=== PATIENT | female | born 1965 | race Caucasian/White ===

== ENCOUNTER → 2017-02-02 | Outpatient (CLI) | payer BC | END | disposition home or self-care (01) | LOC: RADCTMAIN 06:59 | PROVIDERS: ATTEND Nurse Practitioner Family | DX: Z53.9 Procedure and treatment not carried out, unspecified reason (principal) ==

== ENCOUNTER → 2017-02-09 | Outpatient (CLI) | payer BC ==
--- NOTE | 2017-02-09 08:42 | CT ---
EXAMINATION TYPE: CT abdomen w con DATE OF EXAM: 02/09/2017 HISTORY: liver lesion CT DLP: 1923mGycm Automated Exposure Control for Dose Reduction was Utilized. CONTRAST: CT scan of the abdomen is performed without oral and with IV Contrast, patient injected with 100 mL o f Omnipaque 300. COMPARISON: CT abdomen February 27, 2016 MRI liver March 03, 2016. FINDINGS: LUNG BASES: No significant abnormality is appreciated. LIVER/GB: There is persistent well-defined lobulated heterogeneous hypodense lesion right hepatic dom e posterior segment medially measuring 3.8 x 3.8 cm on axial series 7 image 14. On dynamic postcontra st images there is some heterogeneous peripheral filling. Imaging characteristics are consistent with hemangioma. It is slightly atypical as does not completely fill on delayed phased images No new intr ahepatic masses or ductal dilatation is seen. PANCREAS: No significant abnormality is seen. SPLEEN: No significant abnormality is seen. ADRENALS: No significant abnormality is seen. KIDNEYS: No significant abnormality is seen. BOWEL: No significant abnormality is seen. LYMPH NODES: No greater than 1cm abdominal lymph nodes are appreciated. OSSEOUS STRUCTURES: There is S-shaped scoliosis. There is multilevel spurring in the spine. There is disc space narrowing L1-L2 level with sclerosis most prominent along left aspect OTHER: No significant additional abnormality is seen. IMPRESSION: Stable 3.8 cm liver lesion felt to reflect hemangioma. No new lesions are evident.
== END ==
LOC: RADCTMAIN 07:12
PROVIDERS: ATTEND Family Medicine
DX: K76.9 Liver disease, unspecified (principal)
CPT/HCPCS: 74160; Q9967

== ENCOUNTER 2017-12-10 15:27 | Inpatient (IN) | payer BC, MEDICARE, OTHER ==
[2017-12-10] MEDS ORDERED: SODIUM CHLORIDE 0.9% 1,000 ML IV STA (17:06)
[2017-12-10] MEDS ORDERED: KETOROLAC 30 MG/ML 1 ML VIAL IVP STA (17:06)
[2017-12-10] MEDS ORDERED: MORPHINE SULFATE 4 MG/ML SYRINGE IV STA (17:06)
[2017-12-10] MEDS ORDERED: ONDANSETRON 4 MG/2 ML VIAL IVP STA ×2 (17:06→20:02)
[2017-12-10] MEDS ORDERED: ACETAMINOPHEN IV (For NPO) 1,000 MG in EMPTY BAG 1 BAG IVPB STA (17:07)
[2017-12-10] MEDS ORDERED: cefTRIAXone IN SWFI 2,000 MG/20 ML SYRINGE IVP STA (17:07)
--- NOTE | 2017-12-10 17:13 | ED ---
General Adult HPI - General Chief complaint: Back Pain/Injury Stated complaint: blood in urine/back pain Time Seen by Provider: 12/10/17 16:26 Source: patient, RN notes reviewed, old records reviewed Mode of arrival: wheelchair Limitations: no limitations - History of Present Illness Initial comments: This is a 52-year-old female to the ER for evaluation. She presents today for evaluation regarding back pain left flank pain severe left flank pain with fever. Patient was diagnosed urinary tract infection 3 days ago and gets progressively worse. Nausea no vomiting positive fever severe pain. Patient also admits to blood in her urine - Related Data Home Medications Medication Instructions Recorded Confirmed Naproxen [Naprosyn] 500 mg PO Q12HR 10/11/14 12/10/17 Gabapentin [Neurontin] 200 mg PO DAILY 03/11/16 12/10/17 Gabapentin [Neurontin] 300 mg PO HS 03/11/16 12/10/17 Lisinopril-Hctz 20-25 mg 1 tab PO HS 03/11/16 12/10/17 [Zestoretic 20-25] Pravastatin Sodium [Pravachol] 10 mg PO HS 03/11/16 12/10/17 Ranitidine HCl 150 mg PO BID 03/11/16 12/10/17 Ascorbic Acid [Vitamin C] 500 mg PO DAILY 12/10/17 12/10/17 Cholecalciferol [Vitamin D3] 1,000 unit PO DAILY 12/10/17 12/10/17 Cyanocobalamin [Vitamin B-12] 500 mcg PO DAILY 12/10/17 12/10/17 Vitamin C/Biotin [Hair, Skin and 1 tab PO DAILY 12/10/17 12/10/17 Nails] Allergies Allergy/AdvReac Type Severity Reaction Status Date / Time No Known Allergies Allergy Verified 12/10/17 18:07 Review of Systems ROS Statement: Those systems with pertinent positive or pertinent negative responses have been documented in the HPI. ROS Other: All systems not noted in ROS Statement are negative. Past Medical History Past Medical History: Hyperlipidemia, Hypertension Additional Past Medical History / Comment(s): ARTHRITIS, CARPAL TUNNEL History of Any Multi-Drug Resistant Organisms: Unobtainable Past Surgical History: Bladder Surgery, Hysterectomy, Tonsillectomy Past Anesthesia/Blood Transfusion Reactions: No Reported Reaction Past Psychological History: No Psychological Hx Reported Smoking Status: Never smoker Past Alcohol Use History: Occasional Past Drug Use History: None Reported General Exam Limitations: no limitations Course Vital Signs 12/10/17 12/10/17 15:52 19:12 Temperature 98.1 F 99.0 F Pulse Rate 100 87 Respiratory 20 16 Rate Blood Pressure 114/76 141/66 O2 Sat by Pulse 99 97 Oximetry - Reevaluation(s) Reevaluation #1: 12/10/17 20:28 Patient still is fever positive Medical Decision Making - Medical Decision Making 52 female the ER with positive UTI positive kidney stone. Patient will be admitted for urology evaluation for stone removal - Lab Data Result diagrams: 12/10/17 17:30 12/10/17 19:19 Lab Results 12/10/17 12/10/17 12/10/17 Range/Units 17:18 17:18 17:30 WBC 17.4 H (3.8-10.6) k/uL RBC 5.14 (3.80-5.40) m/uL Hgb 14.9 (11.4-16.0) gm/dL Hct 44.9 (34.0-46.0) % MCV 87.3 (80.0-100.0) fL MCH 29.0 (25.0-35.0) pg MCHC 33.2 (31.0-37.0) g/dL RDW 12.8 (11.5-15.5) % Plt Count 251 (150-450) k/uL Neutrophils % 89 % Lymphocytes % 5 % Monocytes % 4 % Eosinophils % 1 % Basophils % 0 % Neutrophils # 15.5 H (1.3-7.7) k/uL Lymphocytes # 0.8 L (1.0-4.8) k/uL Monocytes # 0.7 (0-1.0) k/uL Eosinophils # 0.2 (0-0.7) k/uL Basophils # 0.0 (0-0.2) k/uL Sodium (137-145) mmol/L Potassium (3.5-5.1) mmol/L Chloride (98-107) mmol/L Carbon Dioxide (22-30) mmol/L Anion Gap mmol/L BUN (7-17) mg/dL Creatinine (0.52-1.04) mg/dL Est GFR (CKD-EPI)AfAm (>60 ml/min/1.73 sqM) Est GFR (CKD-EPI)NonAf (>60 ml/min/1.73 sqM) Glucose (74-99) mg/dL Calcium (8.4-10.2) mg/dL Total Bilirubin (0.2-1.3) mg/dL AST (14-36) U/L ALT (9-52) U/L Alkaline Phosphatase (38-126) U/L Total Protein (6.3-8.2) g/dL Albumin (3.5-5.0) g/dL Amylase (30-110) U/L Lipase (23-300) U/L Urine Color Yellow Urine Appearance Cloudy H (Clear) Urine pH 6.0 (5.0-8.0) Ur Specific [place] 1.013 (1.001-1.035) Urine Protein 2+ H (Negative) Urine Glucose (UA) Negative (Negative) Urine Ketones 2+ H (Negative) Urine Blood Trace H (Negative) Urine Nitrite Negative (Negative) Urine Bilirubin Negative (Negative) Urine Urobilinogen <2.0 (<2.0) mg/dL Ur Leukocyte Esterase Large H (Negative) Urine RBC 11 H (0-5) /hpf Urine WBC 101 H (0-5) /hpf Ur Squamous Epith Cells 1 (0-4) /hpf Hyaline Casts 1 (0-2) /lpf Urine Mucus Rare H (None) /hpf Urine HCG, Qual Not Detected (Not Detectd) 12/10/17 Range/Units 19:19 WBC (3.8-10.6) k/uL RBC (3.80-5.40) m/uL Hgb (11.4-16.0) gm/dL Hct (34.0-46.0) % MCV (80.0-100.0) fL MCH (25.0-35.0) pg MCHC (31.0-37.0) g/dL RDW (11.5-15.5) % Plt Count (150-450) k/uL Neutrophils % % Lymphocytes % % Monocytes % % Eosinophils % % Basophils % % Neutrophils # (1.3-7.7) k/uL Lymphocytes # (1.0-4.8) k/uL Monocytes # (0-1.0) k/uL Eosinophils # (0-0.7) k/uL Basophils # (0-0.2) k/uL Sodium 136 L (137-145) mmol/L Potassium 4.0 (3.5-5.1) mmol/L Chloride 100 (98-107) mmol/L Carbon Dioxide 24 (22-30) mmol/L Anion Gap 12 mmol/L BUN 21 H (7-17) mg/dL Creatinine 1.00 (0.52-1.04) mg/dL Est GFR (CKD-EPI)AfAm 74 (>60 ml/min/1.73 sqM) Est GFR (CKD-EPI)NonAf 64 (>60 ml/min/1.73 sqM) Glucose 82 (74-99) mg/dL Calcium 9.1 (8.4-10.2) mg/dL Total Bilirubin 0.4 (0.2-1.3) mg/dL AST 14 (14-36) U/L ALT 26 (9-52) U/L Alkaline Phosphatase 95 (38-126) U/L Total Protein 5.8 L (6.3-8.2) g/dL Albumin 3.5 (3.5-5.0) g/dL Amylase 53 (30-110) U/L Lipase 249 (23-300) U/L Urine Color Urine Appearance (Clear) Urine pH (5.0-8.0) Ur Specific [place] (1.001-1.035) Urine Protein (Negative) Urine Glucose (UA) (Negative) Urine Ketones (Negative) Urine Blood (Negative) Urine Nitrite (Negative) Urine Bilirubin (Negative) Urine Urobilinogen (<2.0) mg/dL Ur Leukocyte Esterase (Negative) Urine RBC (0-5) /hpf Urine WBC (0-5) /hpf Ur Squamous Epith Cells (0-4) /hpf Hyaline Casts (0-2) /lpf Urine Mucus (None) /hpf Urine HCG, Qual (Not Detectd) Disposition Clinical Impression: Left ureteral stone, UTI (urinary tract infection) Disposition: ADMITTED IP TO THIS HOSP Condition: Fair Is patient prescribed a controlled substance at d/c from ED?: No Referrals: Simi Cisneros MD [Primary Care Provider] - 1-2 days
[2017-12-10 17:38] LABS: Basophils % (A) 0 %; Eosinophils # (A) 0.2 k/uL (0-0.7); Eosinophils % (A) 1 %; HCT 44.9 % (34.0-46.0); HGB 14.9 gm/dL (11.4-16.0); Lymphocytes # (A) 0.8 k/uL (1.0-4.8); Lymphocytes % (A) 5 %; MCHC 33.2 g/dL (31.0-37.0); MCV 87.3 fL (80.0-100.0); Mean Platelet Volume 6.8; Monocytes # (A) 0.7 k/uL (0-1.0); Monocytes % (A) 4 %; Neutrophils # (A) 15.5 k/uL (1.3-7.7); Neutrophils % (A) 89 %; Platelet Count 251 k/uL (150-450); RBC 5.14 m/uL (3.80-5.40); RDW 12.8 % (11.5-15.5); WBC 17.4 k/uL (3.8-10.6)
[2017-12-10 18:05] LABS: Appearance,Urine Cloudy (Clear); Bilirubin,Urine Negative (Negative); Blood,Urine Trace (Negative); Color,Urine Yellow; Glucose,Urine (UA) Negative (Negative); Hyaline Casts,Urine 1 /lpf (0-2); Ketones,Urine 2+ (Negative); Leukocyte Esterase,Urine Large (Negative); Mucus,Urine Rare /hpf; Nitrite,Urine Negative (Negative); Protein,Urine 2+ (Negative); RBC,Urine 11 /hpf (0-5); Specific Gravity,Urine 1.013 (1.001-1.035); Squamous Epithelial Cell,Urine 1 /hpf (0-4); Urobilinogen,Urine <2.0 mg/dL (<2.0); WBC,Urine 101 /hpf (0-5)
--- NOTE | 2017-12-10 19:05 | CT ---
EXAMINATION TYPE: CT abdomen pelvis wo con DATE OF EXAM: 12/10/2017 COMPARISON: 02/09/2017 HISTORY: Back pain, hematuria and nausea. TECHNIQUE: Helical acquisition of images was performed from the lung bases through the pelvis. CT DLP: 1273.3 mGycm. Automated exposure control for dose reduction was used. FINDINGS: LUNG BASES: No significant abnormality is appreciated. LIVER/GB: No significant abnormality is appreciated. PANCREAS: No significant abnormality is seen. SPLEEN: No significant abnormality is seen. ADRENALS: No significant abnormality is seen. KIDNEYS, URETERS, BLADDER: There is prominent patient motion artifact on all images, but on axial jose ge 76 [id number] there is evidence of a 2 mm calcification within the left mid ureter. There is mild-mode rate hydronephrosis and mild enlargement of the left kidney, with edematous reticulation throughout t he left perirenal space and thickening of the anterior and posterior renal fascia. These findings are consistent with a clinical diagnosis of left obstructive uropathy. There are no other calcifications in the ureters or kidneys or urinary bladder. FREE AIR: No free air is visualized RETROPERITONEAL ADENOPATHY: None visualized REPRODUCTIVE ORGANS: No significant abnormality is seen PELVIC ADENOPATHY: None visualized. OSSEOUS STRUCTURES: No significant abnormality is seen. BOWEL: No significant abnormality is seen. IMPRESSION: POSITIVE FOR OBSTRUCTIVE LEFT UROPATHY, [id number] IN DEGREE, WITH A CANDIDATE FOR 2 MM CALCIFICATION IN THE LEFT MID URETER AT THE L4 LEVEL.
[2017-12-10 19:53] LABS: Albumin 3.5 g/dL (3.5-5.0); Calcium 9.1 mg/dL (8.4-10.2); Total Bilirubin 0.4 mg/dL (0.2-1.3); Total Protein 5.8 g/dL (6.3-8.2)
[2017-12-10] MEDS ORDERED: SODIUM CHLORIDE 0.9% 1,000 ML IV ONE (20:26)
[2017-12-10] MEDS: MORPHINE SULFATE 4 MG/ML SYRINGE IVP PRN (21:15)
[2017-12-10] MEDS ORDERED: ACETAMINOPHEN TAB 325 MG TAB PO PRN (22:16)
[2017-12-10] MEDS ORDERED: LACTULOSE 20 GM/30 ML CUP PO PRN (22:16)
[2017-12-10] MEDS ORDERED: MELATONIN 3 MG TABLET PO PRN (22:16)
[2017-12-10] MEDS ORDERED: ALPRAZolam 0.25 MG TAB PO PRN (22:16)
[2017-12-10] MEDS ORDERED: CALCIUM CARBONATE 500 MG CHEWABLE PO PRN (22:16)
[2017-12-10] MEDS: KETOROLAC 30 MG/ML 1 ML VIAL IVP PRN (23:49)
[2017-12-10] MEDS: TAMSULOSIN 0.4 MG CAP.ER.24H PO SCH (23:50)
[2017-12-10] MEDS: LISINOPRIL-HCTZ 20-25 MG 1 EACH TAB PO SCH (23:50)
[2017-12-10] MEDS: GABAPENTIN 300 MG CAP PO SCH (23:50)
[2017-12-10] MEDS: FAMOTIDINE 20 MG TAB PO SCH (23:50)
[2017-12-10] MEDS: PRAVASTATIN SODIUM 20 MG TAB PO SCH (23:51)
[2017-12-10] MEDS: ENOXAPARIN 40 MG/0.4 ML SYRINGE SQ SCH (23:52)
[2017-12-10] MEDS: NAPROXEN 250 MG TAB PO SCH (23:53)
[2017-12-10] MEDS: LACTATED RINGERS 1,000 ML IV SCH (23:55)
[2017-12-11] MEDS: MORPHINE SULFATE 4 MG/ML SYRINGE IVP PRN ×4 (01:16→18:46)
[2017-12-11] MEDS: ONDANSETRON 4 MG/2 ML VIAL IVP PRN (01:16)
[2017-12-11] MEDS ORDERED: cefTRIAXone IN SWFI 1,000 MG/10 ML SYRINGE IVP SCH (06:00)
[2017-12-11] MEDS: LACTATED RINGERS 1,000 ML IV SCH ×3 (07:05→22:09)
[2017-12-11 07:13] LABS: Basophils % (A) 0 %; Eosinophils # (A) 0.2 k/uL (0-0.7); Eosinophils % (A) 1 %; HGB 15.2 gm/dL (11.4-16.0); Lymphocytes % (A) 7 %; MCH 29.4 pg (25.0-35.0); MCHC 33.8 g/dL (31.0-37.0); MCV 87.2 fL (80.0-100.0); Mean Platelet Volume 7.4; Monocytes # (A) 0.6 k/uL (0-1.0); Monocytes % (A) 4 %; Neutrophils # (A) 13.3 k/uL (1.3-7.7); Neutrophils % (A) 87 %; Platelet Count 260 k/uL (150-450); RBC 5.17 m/uL (3.80-5.40); RDW 12.9 % (11.5-15.5); WBC 15.2 k/uL (3.8-10.6)
[2017-12-11] MEDS: GABAPENTIN 100 MG CAP PO SCH (07:55)
[2017-12-11] MEDS: TAMSULOSIN 0.4 MG CAP.ER.24H PO SCH (07:55)
[2017-12-11] MEDS: FAMOTIDINE 20 MG TAB PO SCH ×2 (07:55→20:49)
[2017-12-11] MEDS: NAPROXEN 250 MG TAB PO SCH ×2 (07:55→21:50)
[2017-12-11 08:52] LABS: Calcium 9.4 mg/dL (8.4-10.2); Potassium 3.9 mmol/L (3.5-5.1)
[2017-12-11] MEDS: KETOROLAC 30 MG/ML 1 ML VIAL IVP PRN ×3 (09:51→22:06)
--- NOTE | 2017-12-11 16:52 | P.GSCN ---
History of Present Illness Consult date: 12/11/17 Reason for Consult: Pyelonephritis and possible ureteral calculus History of present illness: The patient is a 52-year-old female who says she noted pink-colored urine on . She was also experiencing nausea and pain in her mid back. She works for and says she had a urinalysis performed which suggested a urinary tract infection. She was started on Cipro but unfortunately a urine culture was not obtained at that time. She was anorexic for the next 2 days and continued to have intermittent pain in the mid back. She also said she continue to have some pink-colored urine. She denied a high fever but did say at one time her temperature was as high as 100.9. She noted no odor to her urine has noted no increased urinary frequency or urgency. Due to the persistence of her pain she was advised to come to the emergency room for evaluation. In the emergency room she was afebrile. Her white blood count was 17,400. Urinalysis showed 11 red cells 101 white cells but was negative for nitrite. The patient was suspected to have pyelonephritis although she said her pain was never worse on one side or the other. Computed tomography scan of the abdomen and pelvis without IV contrast was interpreted as showing mild left hydronephrosis and a possible 2 mm calculus in the mid left ureter on sagittal views of the ureter. The patient has no personal or family history of urolithiasis. She has no other history of hematuria. She does have chronic back pain. Review of Systems - Constitutional Reports chills, Denies fever - Cardiovascular Denies shortness of breath - Respiratory Denies pain on inspiration - Gastrointestinal Denies change in bowel habits, Denies vomiting - Genitourinary Genitourinary: Reports as per HPI Past Medical History Past Medical History: Asthma, GERD/Reflux, Hyperlipidemia, Hypertension Additional Past Medical History / Comment(s): ARTHRITIS in hands, CARPAL TUNNEL , chronic back pain, benign lesion on liver History of Any Multi-Drug Resistant Organisms: Unobtainable Past Surgical History: Bladder Surgery, Hysterectomy, Tonsillectomy Additional Past Surgical History / Comment(s): repair of cystocele/rectocel Past Anesthesia/Blood Transfusion Reactions: Motion Sickness Additional Past Anesthesia/Blood Transfusion Reaction / Comm: motion sickness if reading in a car, clausterphobia. pt stated that her mother was rh neg and pt recieved blood transfusion as Smoking Status: Never smoker - Past Family History Mother Family Medical History: Dementia Additional Family Medical History / Comment(s): colitis Father Family Medical History: Hypertension Additional Family Medical History / Comment(s): alcoholic Medications and Allergies Home Medications Medication Instructions Recorded Confirmed Type Naproxen [Naprosyn] 500 mg PO Q12HR 10/11/14 12/10/17 History Gabapentin [Neurontin] 200 mg PO DAILY 03/11/16 12/10/17 History Gabapentin [Neurontin] 300 mg PO HS 03/11/16 12/10/17 History Lisinopril-Hctz 20-25 mg 1 tab PO HS 03/11/16 12/10/17 History [Zestoretic 20-25] Pravastatin Sodium [Pravachol] 10 mg PO HS 03/11/16 12/10/17 History Ranitidine HCl 150 mg PO BID 03/11/16 12/10/17 History Ascorbic Acid [Vitamin C] 500 mg PO DAILY 12/10/17 12/10/17 History Cholecalciferol [Vitamin D3] 1,000 unit PO DAILY 12/10/17 12/10/17 History Cyanocobalamin [Vitamin B-12] 500 mcg PO DAILY 12/10/17 12/10/17 History Vitamin C/Biotin [Hair, Skin and 1 tab PO DAILY 12/10/17 12/10/17 History Nails] Allergies Allergy/AdvReac Type Severity Reaction Status Date / Time No Known Allergies Allergy Verified 12/10/17 18:07 Surgical - Exam Vital Signs Temp Pulse Resp BP Pulse Ox 98.1 F 100 20 114/76 99 12/10/17 15:52 12/10/17 15:52 12/10/17 15:52 12/10/17 15:52 12/10/17 15:52 - General well developed, well nourished, no distress, obese - Neck no masses, no lymphadectomy - Respiratory normal respiratory effort - Abdomen Abdomen: soft, non tender, no organomegaly, no guarding Results - Labs 12/11/17 07:00 12/11/17 07:00 Abnormal Lab Results - Last 24 Hours (Table) 12/10/17 12/10/17 12/10/17 Range/Units 17:18 17:30 19:19 WBC 17.4 H (3.8-10.6) k/uL Neutrophils # 15.5 H (1.3-7.7) k/uL Lymphocytes # 0.8 L (1.0-4.8) k/uL Sodium 136 L (137-145) mmol/L Carbon Dioxide (22-30) mmol/L BUN 21 H (7-17) mg/dL Creatinine (0.52-1.04) mg/dL Total Protein 5.8 L (6.3-8.2) g/dL Urine Appearance Cloudy H (Clear) Urine Protein 2+ H (Negative) Urine Ketones 2+ H (Negative) Urine Blood Trace H (Negative) Ur Leukocyte Esterase Large H (Negative) Urine RBC 11 H (0-5) /hpf Urine WBC 101 H (0-5) /hpf Urine Mucus Rare H (None) /hpf 12/11/17 12/11/17 Range/Units 07:00 07:00 WBC 15.2 H (3.8-10.6) k/uL Neutrophils # 13.3 H (1.3-7.7) k/uL Lymphocytes # (1.0-4.8) k/uL Sodium (137-145) mmol/L Carbon Dioxide 21 L (22-30) mmol/L BUN 29 H (7-17) mg/dL Creatinine 1.19 H (0.52-1.04) mg/dL Total Protein (6.3-8.2) g/dL Urine Appearance (Clear) Urine Protein (Negative) Urine Ketones (Negative) Urine Blood (Negative) Ur Leukocyte Esterase (Negative) Urine RBC (0-5) /hpf Urine WBC (0-5) /hpf Urine Mucus (None) /hpf Microbiology - Last 24 Hours (Table) 12/10/17 17:18 Urine Culture - Preliminary Urine,Clean Catch Diabetes panel 12/10/17 12/11/17 Range/Units 19:19 07:00 Sodium 136 L 138 (137-145) mmol/L Potassium 4.0 3.9 (3.5-5.1) mmol/L Chloride 100 102 (98-107) mmol/L Carbon Dioxide 24 21 L (22-30) mmol/L BUN 21 H 29 H (7-17) mg/dL Creatinine 1.00 1.19 H (0.52-1.04) mg/dL Glucose 82 76 (74-99) mg/dL Calcium 9.1 9.4 (8.4-10.2) mg/dL AST 14 (14-36) U/L ALT 26 (9-52) U/L Alkaline Phosphatase 95 (38-126) U/L Total Protein 5.8 L (6.3-8.2) g/dL Albumin 3.5 (3.5-5.0) g/dL Calcium panel 12/10/17 12/11/17 Range/Units 19: 07:00 Calcium 9.1 9.4 (8.4-10.2) mg/dL Albumin 3.5 (3.5-5.0) g/dL Pituitary panel 12/10/17 12/11/17 Range/Units 19: 07:00 Sodium 136 L 138 (137-145) mmol/L Potassium 4.0 3.9 (3.5-5.1) mmol/L Chloride 100 102 (98-107) mmol/L Carbon Dioxide 24 21 L (22-30) mmol/L BUN 21 H 29 H (7-17) mg/dL Creatinine 1.00 1.19 H (0.52-1.04) mg/dL Glucose 82 76 (74-99) mg/dL Calcium 9.1 9.4 (8.4-10.2) mg/dL Adrenal panel 12/10/17 12/11/17 Range/Units 19:19 07:00 Sodium 136 L 138 (137-145) mmol/L Potassium 4.0 3.9 (3.5-5.1) mmol/L Chloride 100 102 (98-107) mmol/L Carbon Dioxide 24 21 L (22-30) mmol/L BUN 21 H 29 H (7-17) mg/dL Creatinine 1.00 1.19 H (0.52-1.04) mg/dL Glucose 82 76 (74-99) mg/dL Calcium 9.1 9.4 (8.4-10.2) mg/dL Total Bilirubin 0.4 (0.2-1.3) mg/dL AST 14 (14-36) U/L ALT 26 (9-52) U/L Alkaline Phosphatase 95 (38-126) U/L Total Protein 5.8 L (6.3-8.2) g/dL Albumin 3.5 (3.5-5.0) g/dL - Imaging Abdominal x-ray: other (I personally reviewed the patient's computed tomography scan of the abdomen and pelvis which was performed without IV contrast. I am unconvinced that the patient had any significant left hydronephrosis. There is no calculus visible in the left ureter on sagittal or axial views. Unfortunately the coronal views were unobtainable on the PACS.) Assessment and Plan (1) Pyelonephritis Narrative/Plan: The patient's fever and elevated white blood count could be related to pyelonephritis however it is unusual for pyelonephritis to cause pain only in the mid back and not be lateralized to either the right or left side. It is possible that this is the source of the hematuria that the patient experienced earlier. It's impossible to exclude a tiny left ureteral calculus however there does not appear to be any significant hydronephrosis on the computed tomography scan. The patient is more comfortable than when she came in yesterday and should be continued on Rocephin. It's unclear whether the urine culture obtained on admission will be positive as the patient had taken Cipro for 3 days prior to admission. At least at this time I do not feel that placement of a left double- J catheter is necessary. Current Visit: Yes Status: Acute Code(s): N12 - TUBULO-INTERSTITIAL NEPHRITIS, NOT SPCF ACUTE OR CHRONIC SNOMED Code(s): 89414310
[2017-12-11] MEDS ORDERED: ENOXAPARIN 40 MG/0.4 ML SYRINGE SQ SCH (18:00)
--- NOTE | 2017-12-11 19:04 | HP ---
HISTORY AND PHYSICAL DATE OF ADMISSION: 12/10/2017 DATE OF SERVICE: 12/11/2017 PRESENTING COMPLAINT: Left flank pain. HISTORY OF PRESENTING COMPLAINT: This is a very pleasant 52-year-old patient of Dr. Simi Cisneros. Chronic stable medical conditions include asthma, GERD, hypertension, hyperlipidemia, arthritis of the hands and chronic low back pain. Patient for 3 days has been having increasing pain in the abdomen and the flank area. The patient was having nausea and some fever and a pressure-like sensation in the bladder area. The patient did start off with antibiotics, but the pain kept getting worse and she decided to come into the ER. The patient did have a CT scan of the abdomen and pelvis and was found to have obstructive left uropathy, mild to moderate, with a 2 cm calcification in the left mid ureter along with hydronephrosis; hence she was admitted for the same. Patient was started on IV fluids, IV antibiotics, and Urology Dr. Vera was consulted. REVIEW OF SYSTEMS: CONSTITUTIONAL: Tired. HEENT: None. RESPIRATORY: None. CARDIOVASCULAR: None. GASTROINTESTINAL: Heartburn. GENITOURINARY: As above. MUSCULOSKELETAL: Arthritic pain in the lower back and hands. DERMATOLOGICAL: None. HEMATOLOGICAL: None. LYMPHATICS: None. PSYCHIATRY: None. NEUROLOGICAL: None. PAST MEDICAL HISTORY: 1. Asthma. 2. GERD. 3. Hypertension. 4. Hyperlipidemia. 5. Osteoarthritis of the hands. 6. Chronic low back pain. PAST SURGICAL HISTORY: 1. Bladder surgery. 2. Hysterectomy. 3. Tonsillectomy. 4. Repair of cystocele and rectocele. SOCIAL HISTORY: No smoking. Alcohol occasionally. 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 . FAMILY HISTORY: Dementia and colitis. HOME MEDICATIONS: 1. Vitamin hair skin and nails 1 tablet daily. 2. Vitamin D3 1000 units p.o. daily. 3. Vitamin C 500 mg p.o. daily. 4. Zantac 150 mg p.o. b.i.d. 5. Pravachol 10 mg p.o. at bedtime. 6. Naproxen 500 mg q.12. 7. Zestoretic 20/25 one tablet p.o. at bedtime. 8. Neurontin 200 mg in the morning, 300 mg at night. 9. Vitamin B12 500 mcg p.o. daily. ALLERGIES: NONE. PHYSICAL EXAMINATION: VITAL SIGNS ON PRESENTATION: Temperature 98.1, pulse 100, respiration 20, blood pressure 114/76, pulse ox 99% on room air. GENERAL APPEARANCE: Well built, BMI 32.9. Sitting up. Somewhat anxious-appearing. EYES: Pupils equal. Conjunctivae normal. HEENT: External appearance of nose and ears normal. Oral cavity normal. NECK: JVD not raised. Mass not palpable. RESPIRATORY: Effort normal. LUNGS: Fair air entry. CARDIOVASCULAR: First and second sounds normal. No edema. ABDOMEN: Left renal angle tenderness. Liver and spleen not palpable. No guarding or rigidity. LYMPHATIC: No lymph node palpable in neck or axillae. PSYCHIATRY: Alert and oriented x3. Mood and affect normal. NEUROLOGICAL: Pupils equal.. Cranial nerves grossly intact. Power and sensation grossly intact. MUSCULOSKELETAL: Slight evidence of osteoarthritis, especially in the hands. INVESTIGATIONS: White count 17.4, hemoglobin 14.9, potassium 4, BUN 21, creatinine 1.10. UA positive for leukocyte esterase, WBC. CT scan as above. ASSESSMENT: 1. Left ureter stone causing obstruction with secondary hydronephrosis and possibly secondary pyelonephritis with elevated white count, fever at home. That is causing acute complicated UTI. 2. Intermittent asthma, controlled. 3. Gastroesophageal reflux disease. 4. Essential hypertension. 5. Hyperlipidemia. 6. Obesity; body mass index 32.9. PLAN: Continue patient with IV fluids 125 mL/hour. Also Flomax was added. Continue with antibiotics. If there is no improvement, patient will need a ureteroscopy and stone extraction. This was discussed with the patient. Dr. Vera from Urology is already consulted. MMODL / IJN: [id number] /
[2017-12-11] MEDS: GABAPENTIN 300 MG CAP PO SCH (20:57)
[2017-12-11] MEDS: ENOXAPARIN 40 MG/0.4 ML SYRINGE SQ SCH (21:47)
[2017-12-11] MEDS: PRAVASTATIN SODIUM 20 MG TAB PO SCH (21:49)
[2017-12-11] MEDS: LISINOPRIL-HCTZ 20-25 MG 1 EACH TAB PO SCH (21:50)
[2017-12-11] MEDS: MAGNESIUM HYDROXIDE 2,400 MG/10 ML CUP PO PRN (22:25)
[2017-12-12] MEDS: MORPHINE SULFATE 4 MG/ML SYRINGE IVP PRN ×3 (03:19→21:17)
[2017-12-12 07:32] LABS: Calcium 9.4 mg/dL (8.4-10.2); Potassium 3.8 mmol/L (3.5-5.1)
[2017-12-12] MEDS: KETOROLAC 30 MG/ML 1 ML VIAL IVP PRN (08:19)
[2017-12-12] MEDS: cefTRIAXone IN SWFI 1,000 MG/10 ML SYRINGE IVP SCH (08:56)
[2017-12-12] MEDS: CYANOCOBALAMIN 500 MCG TAB PO SCH (08:57)
[2017-12-12] MEDS: ASCORBIC ACID 500 MG TAB PO SCH (08:57)
[2017-12-12] MEDS: TAMSULOSIN 0.4 MG CAP.ER.24H PO SCH (08:57)
[2017-12-12] MEDS: GABAPENTIN 100 MG CAP PO SCH (08:57)
[2017-12-12] MEDS: FAMOTIDINE 20 MG TAB PO SCH (08:57)
--- NOTE | 2017-12-12 09:57 | P.PN ---
Progress Note - Text Progress Note Date: 12/12/17 The patient remains afebrile. Her blood pressure was 112/57. She continues to have midline back pain which overall is less than it was earlier in the week. Her urine is grossly clear and free of blood. BUN/creatinine are 31/1.43 which is increased from yesterday and also increased from that noted at the time of admission. Urine culture is no growth at 18 hours. The cause of the patient's back pain, gross hematuria and low-grade fever remains unexplained. I reviewed a computed tomography scan of the abdomen/ pelvis performed with IV contrast in 01/2017 and at that time there was no evidence of a left renal calculus. I remain unconvinced that the patient has a small partially obstructive left ureteral calculus and this by itself would not explain the gradual rise in her BUN/creatinine. Other causes for the patient's symptoms such as nephritis needs to be considered and I believe that a nephrology consultation should be obtained.
[2017-12-12] MEDS: LACTATED RINGERS 1,000 ML IV SCH ×2 (12:48→20:13)
[2017-12-12] MEDS: ONDANSETRON 4 MG/2 ML VIAL IVP PRN (17:04)
--- NOTE | 2017-12-12 18:59 | PN ---
PROGRESS NOTE DATE OF SERVICE: December 12, 2017. PRESENT COMPLAINT: Left flank pain. INTERVAL HISTORY: Patient presented with acute ureteral obstruction with obstructive pyelonephritis. Today, patient's renal function has gotten worse. Left flank pain is still present. No nausea, vomiting. REVIEW OF SYSTEMS: Done for constitutional, cardiovascular, GI, pulmonary and relevant findings as above. CURRENT MEDICATIONS: Reviewed that include Toradol, naproxen, lisinopril, hydrochlorothiazide. PHYSICAL EXAMINATION: Temperature 98.7, pulse 73, respiratory 18, blood pressure 102/74, pulse ox 96% on room air. General appearance: Sitting up, not in distress. Eyes: Pupils are equal. Conjunctivae normal. HEENT external appearance of nose and ears normal. Oral cavity normal. Neck JVD not raised. Mass not palpable. Respiratory effort normal. Lungs fair entry. Cardiovascular 1st and 2nd sounds normal. No edema. ABDOMEN: Soft, left renal angle tenderness. Liver and spleen not palpable. Psychiatry: Alert and oriented x3. Mood and affect normal. INVESTIGATIONS: Potassium 3.8, BUN 31, creatinine 1.43. ASSESSMENT: 1. Acute kidney injury likely from acute tubular necrosis combination of patient being on NSAID and NHI inhibitor. 2. Left obstructive hydroureter with secondary hydronephrosis and secondary pyelonephritis slow to respond. 3. Intermittent asthma controlled. 4. Gastroesophageal reflux disease. 5. Essential hypertension. 6. Hyperlipidemia. 7. Obesity; BMI 32.9. PLAN: At this point, I have discontinued the patient's naproxen, Toradol, and the diuretic and lisinopril. The patient did receive today's dose. Expect this to start turning around by tomorrow. In the meantime, continue with IV fluids and IV ceftriaxone. If the obstruction does not resolve, it may need a ureteroscopy with extraction. This was discussed with the patient. Follow. MMODL / IJN: [id number] /
[2017-12-12] MEDS: PRAVASTATIN SODIUM 20 MG TAB PO SCH (20:59)
[2017-12-12] MEDS: ENOXAPARIN 40 MG/0.4 ML SYRINGE SQ SCH (21:04)
[2017-12-12] MEDS: GABAPENTIN 300 MG CAP PO SCH (21:05)
[2017-12-12] MEDS: MAGNESIUM HYDROXIDE 2,400 MG/10 ML CUP PO PRN (21:51)
[2017-12-13] MEDS: MORPHINE SULFATE 4 MG/ML SYRINGE IVP PRN ×3 (01:41→18:03)
[2017-12-13] MEDS: LACTATED RINGERS 1,000 ML IV SCH ×2 (04:01→18:50)
[2017-12-13] MEDS: cefTRIAXone IN SWFI 1,000 MG/10 ML SYRINGE IVP SCH (08:49)
[2017-12-13] MEDS: TAMSULOSIN 0.4 MG CAP.ER.24H PO SCH (08:50)
[2017-12-13] MEDS: ASCORBIC ACID 500 MG TAB PO SCH (08:50)
[2017-12-13] MEDS: GABAPENTIN 100 MG CAP PO SCH (08:50)
[2017-12-13] MEDS: FAMOTIDINE 20 MG TAB PO SCH (08:50)
[2017-12-13] MEDS: CYANOCOBALAMIN 500 MCG TAB PO SCH (08:50)
[2017-12-13 09:56] LABS: Calcium 8.9 mg/dL (8.4-10.2); Potassium 4.4 mmol/L (3.5-5.1)
--- NOTE | 2017-12-13 10:08 | P.NPCON ---
History of Present Illness - Reason for Consult Consult date: 12/13/17 acute renal failure - Chief Complaint SAÚL - History of Present Illness This is a 52-year-old female seen in consultation because of acute kidney injury. Her creatinine has gone from 1-1.4 She has a CAT scan that shows a possible left ureteral stone, but it is questionable. She presented with low back pain, left loin pain with some suprapubic discomfort. This is been going on for proximally 2-3 days prior to admission. She did have some temperature at home of 100.6. She is in the nauseated but no vomiting. She has chronic constipation and uses MiraLAX. There has been no change in her bowel habits. No cough chest pain shortness of breath headache dizziness. She denied any dysuria. No past history of kidney stones. Her past history significant for hypertension for a 5-6 years on lisinopril had a protracted that combination. No history of heart attack strokes claudication pain diabetes. Her home medication included lisinopril hydrochlorothiazide as well as Naprosyn and that should been taking for 2-3 years because of carpal tunnel syndrome. She takes 375 mg twice a day. Her creatinine on admission was 1 but went up to 1.4 as of yesterday. She was given IV fluids in the hospital A urinalysis here in the hospital shows 2+ proteinuria and 101 WBCs, 11 RBCs. Past Medical History Past Medical History: Asthma, GERD/Reflux, Hyperlipidemia, Hypertension Additional Past Medical History / Comment(s): ARTHRITIS in hands, CARPAL TUNNEL , chronic back pain, benign lesion on liver History of Any Multi-Drug Resistant Organisms: Unobtainable Past Surgical History: Bladder Surgery, Hysterectomy, Tonsillectomy Additional Past Surgical History / Comment(s): repair of cystocele/rectocel Past Anesthesia/Blood Transfusion Reactions: Motion Sickness Additional Past Anesthesia/Blood Transfusion Reaction / Comment(s): motion sickness if reading in a car, clausterphobia. pt stated that her mother was rh neg and pt recieved blood transfusion as Smoking Status: Never smoker - Past Family History Mother Family Medical History: Dementia Additional Family Medical History / Comment(s): colitis Father Family Medical History: Hypertension Additional Family Medical History / Comment(s): alcoholic Medications and Allergies Home Medications Medication Instructions Recorded Confirmed Type Naproxen [Naprosyn] 500 mg PO Q12HR 10/11/14 12/10/17 History Gabapentin [Neurontin] 200 mg PO DAILY 03/11/16 12/10/17 History Gabapentin [Neurontin] 300 mg PO HS 03/11/16 12/10/17 History Lisinopril-Hctz 20-25 mg 1 tab PO HS 03/11/16 12/10/17 History [Zestoretic 20-25] Pravastatin Sodium [Pravachol] 10 mg PO HS 03/11/16 12/10/17 History Ranitidine HCl 150 mg PO BID 03/11/16 12/10/17 History Ascorbic Acid [Vitamin C] 500 mg PO DAILY 12/10/17 12/10/17 History Cholecalciferol [Vitamin D3] 1,000 unit PO DAILY 12/10/17 12/10/17 History Cyanocobalamin [Vitamin B-12] 500 mcg PO DAILY 12/10/17 12/10/17 History Vitamin C/Biotin [Hair, Skin and 1 tab PO DAILY 12/10/17 12/10/17 History Nails] Allergies Allergy/AdvReac Type Severity Reaction Status Date / Time No Known Allergies Allergy Verified 12/10/17 18:07 Physical Exam Vitals: Vital Signs Temp Pulse Resp BP Pulse Ox 12/13/17 08:06 98.5 F 90 18 126/79 97 12/12/17 21:00 99.1 F 18 122/66 97 12/12/17 15:00 98.5 F 58 L 18 127/75 96 12/12/17 11:09 98.7 F 73 18 112/74 96 Intake and Output 12/12/17 12/13/17 12/13/17 22:59 06:59 14:59 Intake Total 480 940 900 Output Total 650 600 400 Balance -170 340 500 Intake: Intake, IV Titration 940 Amount Lactated Ringers 1,000 ml 940 @ 125 mls/hr IV .Q8H [facility] Rx#:[id number] Oral 480 900 Output: Urine 650 600 400 Other: Voiding Method Toilet Toilet Toilet Examination she is awake alert oriented comfortable pain is much reduced after pain medications. HEENT exam no JVP lymphadenopathy thyromegaly neck is supple no facial asymmetry pupils are equal. Lungs are clear to auscultation percussion good air entry bilaterally Heart sounds are unremarkable no murmur rub gallop Abdomen is soft there is tenderness in the right groin as well as suprapubic area. Extremity exam reveals trace edema Neurologically awake alert oriented. Skin shows no rash. Results - Lab Results Most recent lab results Calcium 9.4 mg/dL (8.4-10.2) 12/12/17 06:53 12/11/17 07:00 12/12/17 06:53 Assessment and Plan Plan: Impression 1. Acute kidney injury creatinine went up from 1 on admission to 1.4 yesterday. Urinalysis here in the hospital showed pyuria with 101 WBCs, 11 RBCs and 2+ protein but repeat urinalysis by me this morning on microscopy shows 4-5 WBCs, no RBCs and occasional squamous cell. The cause of the acute kidney injury is deemed to from a combination of Naprosyn lisinopril hydrochlorothiazide reduced intake and possible obstructive left hydronephrosis because of a urethral stone although urology feels there is no stone on the computed tomography scan. 2. Hypertension for 5 years under control. 3. Mild degree of gap acidosis from acute kidney injury with bicarb of 28 doesn 't of 4 with the gap of 17 with adult of 5. 4. Mild hyponatremia secondary acute kidney injury sodium is 133. 5. Carpal tunnel syndrome on Naprosyn. Recommendation. 1. Discussed with Dr. Vera from urology and we will repeat either an ultrasound or computed tomography scan after discussion with the radiologist. 2. Maintain IV fluids for today normal saline and 125 an hour. 3. Regarding the acidosis is no need to treat as expected to improve. 4. Once she is stabilized resume her lisinopril. 5. If a stone is conformed after discharge In about 6-8 weeks she will need stone workup as it has caused her complications. In the meantime she should drink adequately amounts of water to produce 2-1/2 L of urine Thank you for this consultation will continue to follow
--- NOTE | 2017-12-13 10:18 | P.PN ---
Progress Note - Text Progress Note Date: 12/13/17 The patient is afebrile. She continues to have intermittent pain in the mid low back and left sacroiliac area. She says the pain seems worse when she moves and twists. Her urine is grossly clear and a follow-up urinalysis is improved from that on admission. Her creatinine today has improved and is 1.22. Urine culture is no growth. The cause of the patient's pain remains unclear. If the patient does have a left ureteral calculus that appears to be a tiny is it is not well visualized on computed tomography scan. It is also possible that the patient had a urinary tract infection prior to her admission but unfortunately urine culture was not obtained prior to starting Cipro earlier this week. From my standpoint the patient could be discharged as long as she is comfortable. I would suggest that she continue to strain her urine. She should also have a follow-up BUN and creatinine sometime next week to confirm that they have returned to normal.
[2017-12-13] MEDS: GABAPENTIN 300 MG CAP PO SCH (21:19)
[2017-12-13] MEDS: ENOXAPARIN 40 MG/0.4 ML SYRINGE SQ SCH (21:19)
[2017-12-13] MEDS: PRAVASTATIN SODIUM 20 MG TAB PO SCH (21:19)
--- NOTE | 2017-12-13 23:00 | PN ---
PROGRESS NOTE DATE OF SERVICE: 12/13/17 PRESENTING COMPLAINT: Left flank pain. INTERVAL HISTORY: Patient presented with acute ureteral obstruction with obstructive pyelonephritis, getting better. The patient also had acute renal failure probably drug induced, getting better. The patient's appetite is getting better. Per Nephrology no further intervention at the present time. REVIEW OF SYSTEMS: Done for constitutional, cardiovascular, GI, pulmonary; relevant findings as above. CURRENT MEDICATIONS: Reviewed. EXAMINATION: Afebrile, pulse 86. Respiratory 18, blood pressure 150/68, pulse ox 96% on room air. General appearance: Sitting up, more comfortable. Eyes: Pupils equal. Conjunctivae normal. HEENT: External appearance of nose and ears normal. Oral cavity normal. Neck JVD not raised. Mass not palpable. Respiratory effort normal. Lungs are clear. Cardiovascular 1st and 2nd sounds normal. No edema. Abdomen: Minimal left renal angle tenderness. Liver and spleen not palpable. Psychiatry: Alert and oriented x3. Mood and affect normal. INVESTIGATIONS: Potassium 4.4, BUN 22, creatinine 1.20. ASSESSMENT: 1. Acute kidney injury likely from acute tubular necrosis combination of patient being on NSAIDs and NHI inhibitor started to improve. 2. Left obstructive hydroureter if any with a very small stone secondary to hydronephrosis and secondary pyelonephritis. 3. Intermittent asthma controlled. 4. Gastroesophageal reflux disease. 5. Essential hypertension. 6. Hyperlipidemia. 7. Obesity; BMI 32.9. PLAN: Overall patient doing better. I discussed with Dr. Vera. From his standpoint no further intervention right now. We will continue to hold off nephrotoxic drugs. Continue with IV fluids. Repeat labs in the morning. Care was discussed with the patient. MMODL / IJN: [id number] /
[2017-12-14] MEDS: LACTATED RINGERS 1,000 ML IV SCH (02:06)
[2017-12-14] MEDS: MORPHINE SULFATE 4 MG/ML SYRINGE IVP PRN (02:10)
[2017-12-14 06:55] VITALS: TEMP 98.3
[2017-12-14 07:39] LABS: Basophils % (A) 0 %; Eosinophils # (A) 0.2 k/uL (0-0.7); Eosinophils % (A) 2 %; HCT 34.8 % (34.0-46.0); Lymphocytes # (A) 1.5 k/uL (1.0-4.8); Lymphocytes % (A) 15 %; MCH 28.2 pg (25.0-35.0); MCHC 32.7 g/dL (31.0-37.0); MCV 86.4 fL (80.0-100.0); Mean Platelet Volume 6.6; Monocytes # (A) 0.7 k/uL (0-1.0); Monocytes % (A) 7 %; Neutrophils % (A) 72 %; Platelet Count 294 k/uL (150-450); RBC 4.02 m/uL (3.80-5.40); RDW 13.1 % (11.5-15.5); WBC 9.7 k/uL (3.8-10.6)
[2017-12-14 07:40] LABS: HGB 11.4 gm/dL (11.4-16.0)
[2017-12-14 07:51] LABS: Calcium 9.1 mg/dL (8.4-10.2); Potassium 4.4 mmol/L (3.5-5.1)
[2017-12-14 08:28] VITALS: BP 132/76; PULSE 85; RESP 17
[2017-12-14] MEDS: TAMSULOSIN 0.4 MG CAP.ER.24H PO SCH (08:36)
[2017-12-14] MEDS: ASCORBIC ACID 500 MG TAB PO SCH (08:55)
[2017-12-14] MEDS: cefTRIAXone IN SWFI 1,000 MG/10 ML SYRINGE IVP SCH (08:55)
[2017-12-14] MEDS: FAMOTIDINE 20 MG TAB PO SCH (08:55)
[2017-12-14] MEDS: CYANOCOBALAMIN 500 MCG TAB PO SCH (08:55)
[2017-12-14] MEDS: GABAPENTIN 100 MG CAP PO SCH (08:55)
--- NOTE | 2017-12-14 09:30 | P.PN ---
Subjective Patient is seen in follow-up for acute kidney injury. Creatinine is down to 1.03 today. She presented with back and groin pain and there was question of a 2 mm stone causing the symptoms. Urology is following. She is overall doing better today. Vital signs are stable. General: The patient appeared well nourished and normally developed. HEENT: Head exam is unremarkable. Neck is without jugular venous distension. LUNGS: Lungs are clear to auscultation and percussion. Breath sounds decreased. HEART: Rate and Rhythm are regular. First and second heart sounds normal. No murmurs, rubs or gallops. ABDOMEN: Abdominal exam reveals normal bowel sounds. Non-tender and non- distended. No evidence of peritonitis. EXTREMITITES: No clubbing, cyanosis, or edema. Objective - Vital Signs Vital signs: Vital Signs Temp 98.3 F 12/14/17 08:00 Pulse 85 12/14/17 08:00 Resp 17 12/14/17 08:00 BP 132/76 12/14/17 08:00 Pulse Ox 95 12/14/17 08:00 Intake & Output 12/13/17 12/14/17 12/14/17 18:59 06:59 18:59 Intake Total 2800 540 Output Total 2900 1600 Balance -100 -1060 Intake: Oral 2800 540 Output: Urine 2900 1600 Other: Voiding Method Toilet Toilet - Labs CBC & Chem 7: 12/14/17 07:13 12/14/17 07:13 Labs: Abnormal Lab Results - Last 24 Hours (Table) 12/13/17 12/13/17 12/14/17 Range/Units 08:59 13:13 07:13 Sodium 132 L 136 L (137-145) mmol/L Chloride 95 L 97 L (98-107) mmol/L BUN 22 H (7-17) mg/dL Creatinine 1.20 H (0.52-1.04) mg/dL Glucose 122 H (74-99) mg/dL U Random Total Protein 21 H (<12) mg/dL Assessment and Plan Plan: Assessment: 1. Nonoliguric acute kidney injury mostly prerenal secondary to nonsteroidals and further worsened with the use of diuretics. Improving. Creatinine is down to 1.03 today. 2. Mild to moderate left-sided obstruction noted on CAT scan. Concern for a 2 mm stone also gets very small in size. Urology following. No acute interventions plan at this time. 3. Benign hypertension. Controlled. 4. Hyponatremia mostly hypovolemic improved with IV hydration. 5. Metabolic acidosis secondary to acute kidney injury and IV fluids. Resolved. Plan: Hep-Lock IV fluids. I advised to avoid NSAIDs. She can resume Zestoretic if systolic blood pressure greater than 130. Stable to discharge home from nephrology standpoint. She will need to follow- up as an outpatient in the next 2 weeks.
[2017-12-14] MEDS ORDERED: MORPHINE ORAL SOLN 10 MG/5 ML CUP PO PRN (11:42)
[2017-12-14] MEDS ORDERED: FAMOTIDINE 20 MG TAB PO SCH (21:00)
--- NOTE | 2017-12-15 08:22 | DS ---
DISCHARGE SUMMARY DATE OF ADMISSION: 12/10/2017 DATE OF DISCHARGE: 12/14/2017 FINAL DIAGNOSES: 1. Acute kidney injury likely from acute tubular necrosis, a combination of patient being on NSAIDs and NHI inhibitors, started to improve, now resolved. 2. Left obstructive hydroureter from a stone causing hydronephrosis and secondary pyelonephritis, present on admission/reason for admission. 3. Intermittent asthma, controlled. 4. Gastroesophageal reflux disease. 5. Essential hypertension. 6. Hyperlipidemia. 7. Obesity; body mass index 32.9. CONSULTATION: 1. Dr. Philip from Nephrology. 2. Dr. Vera from Urology. HOSPITAL COURSE: The patient was being treated for outpatient UTI. Did not respond. Found to have a ureteral stone obstructing causing secondary high flow nephrosis with fever, chills, and tenderness in the left flank. Responded well to antibiotics and fluids. Doing much better by the time of discharge because of NSAIDs. Patient did go into renal failure and there is bump up of creatinine up to1.43 did come to 1.03 by the time of discharge on exam lungs are clear cardiovascular 1st 2nd sounds normal. No renal angle tenderness. Care was discussed with Dr. Vera, not for any intervention. Clinically patient doing much better. Care was discussed in detail with the patient. Questions were answered. Discharge planning more than 35 minutes. DISCHARGE MEDICATIONS: 1. Neurontin 200 mg p.o. daily, and 300 mg p.o. q.h.s. 2. Zestoretic 20/25 one tablet p.o. q.h.s. 3. Pravachol 10 mg q.h.s. 4. Zantac 150 mg p.o. b.i.d. 5. Vitamin C 500 mg p.o. daily. 6. Vitamin B12 five hundred mcg p.o. daily. 7. Ceftin 500 mg p.o. b.i.d. 10 tablets. 8. Flomax 0.4 mg breakfast, 7 tablets. Follow up with Dr. Simi Cisneros in 3 days; Dr. Barrios in 10 days. BMP in 3 days. The patient is to strain urine at home. Patient may return to work in 3 days. MMODL / IJN: [id number] /
== END 2017-12-14 16:17 | disposition home or self-care (01) | DRG 690 ==
LOC: EC 15:27 → 6PED 20:26
PROVIDERS: ADMIT Hospitalist; ATTEND Hospitalist
DX: N13.6 Pyonephrosis (principal); E87.2 Acidosis; E87.1 Hypo-osmolality and hyponatremia; N17.0 Acute kidney failure with tubular necrosis; J45.20 Mild intermittent asthma, uncomplicated; E78.5 Hyperlipidemia, unspecified; I10 Essential (primary) hypertension; M19.041 Primary osteoarthritis, right hand; M19.042 Primary osteoarthritis, left hand; G56.00 Carpal tunnel syndrome, unspecified upper limb; K21.9 Gastro-esophageal reflux disease without esophagitis; G89.29 Other chronic pain; M54.5 Low back pain; K76.9 Liver disease, unspecified; F40.240 Claustrophobia; R31.0 Gross hematuria; K59.09 Other constipation; T39.395A Adverse effect of other nonsteroidal anti-inflammatory drugs [NSAID], initial encounter; T50.2X5A Adverse effect of carbonic-anhydrase inhibitors, benzothiadiazides and other diuretics, initial encounter; T46.4X5A Adverse effect of angiotensin-converting-enzyme inhibitors, initial encounter; E66.9 Obesity, unspecified; Z68.32 Body mass index [BMI] 32.0-32.9, adult; Z79.1 Long term (current) use of non-steroidal anti-inflammatories (NSAID); Z79.899 Other long term (current) drug therapy; Z90.710 Acquired absence of both cervix and uterus; Z81.1 Family history of alcohol abuse and dependence; Z81.8 Family history of other mental and behavioral disorders; Z82.49 Family history of ischemic heart disease and other diseases of the circulatory system; Z83.79 Family history of other diseases of the digestive system; E86.1 Hypovolemia
CPT/HCPCS: 36415; 74176; 80048; 80053; 81001; 81025; 82150; 82570; 83690; 84156; 85025; 87086; 96361; 96365; 96375; 99285

== ENCOUNTER → 2018-01-20 | Outpatient (CLI) | payer MEDICARE ==
--- NOTE | 2018-01-20 11:53 | XR ---
EXAMINATION TYPE: XR KUB DATE OF EXAM: 01/20/2018 11:40 AM CLINICAL HISTORY: Left-sided kidney stone, abnormal recent CT. TECHNIQUE: Two supine KUB images of the abdomen are obtained. COMPARISON: CT abdomen and pelvis December 10, 2017 FINDINGS: Possible 2 mm calculus mid left ureter level on CT is not clearly identified on plain films . No definite nephrolithiasis on plain films. Overall nonobstructive bowel gas pattern. Increased fecal prominence right colon is noted on plain fi lms. There is persistent S-shaped scoliosis with spurring and disc space narrowing most prominent lef t L1-L2 level. IMPRESSION: Possible [address] is too small to visualize on plain films.
== END | disposition home or self-care (01) ==
LOC: RADXRMAIN 11:19
PROVIDERS: ATTEND Urology
DX: N20.1 Calculus of ureter (principal)
CPT/HCPCS: 74018

== ENCOUNTER → 2018-04-21 | Outpatient (CLI) | payer MEDICARE ==
--- NOTE | 2018-04-21 10:03 | CT ---
EXAMINATION TYPE: CT abdomen wo con DATE OF EXAM: 04/21/2018 COMPARISON: 12/10/2017 HISTORY: 52 year-old female with unspecified hydronephrosis, flank pain TECHNIQUE: Contiguous axial scanning of the abdomen and pelvis without IV contrast. Coronal and sagit issac reconstructions performed. CT DLP: 930.5 mGycm Automated exposure control for dose reduction was used. FINDINGS: Heart normal size without pericardial effusion. Lung bases clear without pleural effusion. Noncontrast appearance of the liver, gallbladder, adrenal glands, right kidney, spleen, and atrophic pancreas show no gross abnormality. No dilated small bowel, free fluid, or free air. Scattered prominent mesenteric lymph nodes are unchanged. Normal appendix. There is moderate stool burden. No pericolonic inflammatory change. There is some residual mild left-sided perinephric stranding but no longer any significant hydronephr osis. Previously seen tiny calculus in the left mid ureter has resolved. Bladder not distended. Uterus surgically absent. Ovaries not clearly delineated from adjacent bowel l oops or may also be surgically absent. No abnormal fluid collection in the pelvis or pelvic lymphaden opathy. Phlebolith in the left side of the pelvis. Bones: Mild degenerative changes at the hips and degenerative changes throughout the lower thoracic a nd upper lumbar spine. IMPRESSION: IMPROVEMENT IN THE PREVIOUS LEFT-SIDED HYDRONEPHROSIS AND CLEARANCE OF THE PREVIOUS MID LEFT URETERAL CALCULUS. MILD RESIDUAL PERINEPHRIC EDEMA/INFLAMMATION REMAINS. CORRELATION CAN BE MADE TO EXCLUDE U NDERLYING INFECTION.
== END | disposition home or self-care (01) ==
LOC: RADCTMAIN 06:54
PROVIDERS: ATTEND Nurse Practitioner Family
DX: N13.30 Unspecified hydronephrosis (principal); R52 Pain, unspecified
CPT/HCPCS: 74150

== ENCOUNTER 2021-12-26 07:53 | Emergency (ER) | payer BC ==
[2021-12-26] MEDS ORDERED: BEBTELOVIMAB (EUA) 175 MG/2 ML VIAL IV ONE (08:30)
[2021-12-26 08:48] VITALS: RESP 18
--- NOTE | 2021-12-26 08:57 | ED ---
General Adult HPI - General Chief complaint: Recheck/Abnormal Lab/Rx Stated complaint: covid+, wants infusion Time Seen by Provider: 12/26/21 08:01 Source: patient, RN notes reviewed Mode of arrival: ambulatory Limitations: no limitations - History of Present Illness Initial comments: 56-year-old female presents emergency Department with chief complaint of COVID- 19 positive. Patient states she tested positive at home also at her physician's office. Patient states that she's had increasing cough congestion bodyaches headache. Patient's episode throat is resolving initially had a fever no recent fever. No chest pain or shortness breath no nausea vomiting diarrhea constipation. - Related Data Home Medications Medication Instructions Recorded Confirmed Gabapentin [Neurontin] 200 mg PO DAILY 03/11/16 12/10/17 Gabapentin [Neurontin] 300 mg PO HS 03/11/16 12/10/17 Lisinopril-Hctz 20-25 mg 1 tab PO HS 03/11/16 12/10/17 [Zestoretic 20-25] Pravastatin Sodium [Pravachol] 10 mg PO HS 03/11/16 12/10/17 Ranitidine HCl 150 mg PO BID 03/11/16 12/10/17 Ascorbic Acid [Vitamin C] 500 mg PO DAILY 12/10/17 12/10/17 Cyanocobalamin [Vitamin B-12] 500 mcg PO DAILY 12/10/17 12/10/17 Previous Rx's Medication Instructions Recorded Cefuroxime Axetil [Ceftin] 500 mg PO BID #10 tab 12/14/17 Tamsulosin [Flomax] 0.4 mg PO PC-BRKFST #7 cap.er.24h 12/14/17 Ondansetron Odt [Zofran ODT] 4 mg PO Q8HR PRN #10 tab 09/15/19 Allergies Allergy/AdvReac Type Severity Reaction Status Date / Time No Known Allergies Allergy Verified 12/26/21 07:55 Review of Systems ROS Statement: Those systems with pertinent positive or pertinent negative responses have been documented in the HPI. ROS Other: All systems not noted in ROS Statement are negative. Past Medical History Past Medical History: Asthma, GERD/Reflux, Hyperlipidemia, Hypertension Additional Past Medical History / Comment(s): ARTHRITIS in hands, CARPAL TUNNEL, chronic back pain, benign lesion on liver History of Any Multi-Drug Resistant Organisms: Unobtainable Past Surgical History: Bladder Surgery, Hysterectomy, Tonsillectomy Additional Past Surgical History / Comment(s): repair of cystocele/rectocel Past Anesthesia/Blood Transfusion Reactions: Motion Sickness Additional Past Anesthesia/Blood Transfusion Reaction / Comment(s): motion sickness if reading in a car, clausterphobia. pt stated that her mother was rh neg and pt recieved blood transfusion as infant Past Psychological History: No Psychological Hx Reported Past Alcohol Use History: Occasional Past Drug Use History: None Reported - Past Family History Mother Family Medical History: Dementia Additional Family Medical History / Comment(s): colitis Father Family Medical History: Hypertension Additional Family Medical History / Comment(s): alcoholic General Exam Limitations: no limitations General appearance: alert, in no apparent distress Head exam: Present: atraumatic, normocephalic, normal inspection Eye exam: Present: normal appearance, PERRL, EOMI. Absent: scleral icterus, conjunctival injection, periorbital swelling ENT exam: Present: normal exam, normal oropharynx, mucous membranes moist Neck exam: Present: normal inspection, full ROM. Absent: tenderness, meningismus, lymphadenopathy Respiratory exam: Present: normal lung sounds bilaterally. Absent: respiratory distress, wheezes, rales, rhonchi, stridor Cardiovascular Exam: Present: regular rate, normal rhythm, normal heart sounds. Absent: systolic murmur, diastolic murmur, rubs, gallop, clicks Course Vital Signs 12/26/21 12/26/21 07:56 08:46 Temperature 98.3 F Pulse Rate 68 52 L Respiratory 16 18 Rate Blood Pressure 202/79 124/65 O2 Sat by Pulse 97 95 Oximetry Medical Decision Making - Medical Decision Making Patient received monoclonal antibodies. Patient does not have any significant dyspnea. Patient did have mild hypertension that she just took her medications prior arrival. Patient will be discharged to condition return parameters discussed. Disposition Clinical Impression: COVID-19 Disposition: HOME SELF-CARE Condition: Stable Instructions (If sedation given, give patient instructions): COVID-19 (Coronavirus Disease 2019) (ED) Additional Instructions: Please return to the Emergency Department if symptoms worsen or any other concerns. Is patient prescribed a controlled substance at d/c from ED?: No Referrals: Simi Cisneros MD [Primary Care Provider] - 1-2 days Time of Disposition: 08:56
[2021-12-26 10:05] VITALS: BP 139/77; PULSE 57; TEMP 98.7
== END 2021-12-26 10:05 | disposition home or self-care (01) ==
LOC: EC 07:53
DX: U07.1 COVID-19 (principal); J45.909 Unspecified asthma, uncomplicated; E78.5 Hyperlipidemia, unspecified; I10 Essential (primary) hypertension
CPT/HCPCS: 99283; Q0222

== ENCOUNTER 2023-07-05 14:11 | Emergency (ER) | payer BC ==
[2023-07-05 14:31] VITALS: TEMP 98.7
[2023-07-05] MEDS ORDERED: LORazepam 2 MG/ML INJ IV STA (14:47)
[2023-07-05] MEDS ORDERED: SODIUM CHLORIDE 0.9% 1,000 ML IV STA (14:47)
--- NOTE | 2023-07-05 14:53 | ED ---
Nausea/Vomiting/Diarrhea HPI - General Chief complaint: Nausea/Vomiting/Diarrhea Stated complaint: NVD Time Seen by Provider: 07/05/23 14:32 Source: patient, RN notes reviewed Mode of arrival: EMS Limitations: no limitations - History of Present Illness Initial comments: Patient is a 58-year-old female presenting ER via EMS with chief complaint of nausea and diarrhea. Patient reports she started Wegovy about 6 months ago. She is currently on the maintenance dose. Patient states Thursday,07/03/23, she started having dark colored urine with generalized abdominal pain. Patient states she is also having diarrhea. Denies bright red blood or melena. Patient reports she spiked a fever yesterday of 103.0 and took tylenol with relief. She is also having chills. Patient also states she stopped taking her Effexor about 8 months ago. Patient states she is extremely anxious right now. Patient denies any cough, congestion, sore throat, chest pain, shortness of breath or peripheral edema. - Related Data Home Medications Medication Instructions Recorded Confirmed Gabapentin [Neurontin] 200 mg PO DAILY 03/11/16 12/10/17 Gabapentin [Neurontin] 300 mg PO HS 03/11/16 12/10/17 Lisinopril-Hctz 20-25 mg 1 tab PO HS 03/11/16 12/10/17 [Zestoretic 20-25] Pravastatin Sodium [Pravachol] 10 mg PO HS 03/11/16 12/10/17 raNITIdine HCL [Zantac] 150 mg PO BID 03/11/16 12/10/17 Ascorbic Acid [Vitamin C] 500 mg PO DAILY 12/10/17 12/10/17 Cyanocobalamin [Vitamin B-12] 500 mcg PO DAILY 12/10/17 12/10/17 Previous Rx's Medication Instructions Recorded Tamsulosin [Flomax] 0.4 mg PO PC-BRKFST #7 cap.er.24h 12/14/17 cefUROXime axetiL [Ceftin] 500 mg PO BID #10 tab 12/14/17 Ondansetron Odt [Zofran ODT] 4 mg PO Q8HR PRN #10 tab 09/15/19 Dicyclomine [Bentyl] 20 mg PO TID #30 tablet 07/05/23 Loperamide [Imodium] 2 mg PO ONCE #10 capsule 07/05/23 Allergies Allergy/AdvReac Type Severity Reaction Status Date / Time No Known Allergies Allergy Verified 12/26/21 07:55 Review of Systems ROS Statement: Those systems with pertinent positive or pertinent negative responses have been documented in the HPI. ROS Other: All systems not noted in ROS Statement are negative. Past Medical History Past Medical History: Asthma, GERD/Reflux, Hyperlipidemia, Hypertension Additional Past Medical History / Comment(s): ARTHRITIS in hands, CARPAL TUNNEL, chronic back pain, benign lesion on liver. neuro[sergey History of Any Multi-Drug Resistant Organisms: Unobtainable Past Surgical History: Bladder Surgery, Hysterectomy, Orthopedic Surgery, Tonsillectomy Additional Past Surgical History / Comment(s): repair of cystocele/rectocel Past Anesthesia/Blood Transfusion Reactions: Motion Sickness Additional Past Anesthesia/Blood Transfusion Reaction / Comment(s): motion sickness if reading in a car, clausterphobia. pt stated that her mother was rh neg and pt recieved blood transfusion as Past Psychological History: No Psychological Hx Reported Past Alcohol Use History: Occasional Past Drug Use History: None Reported - Past Family History Mother Family Medical History: Dementia Additional Family Medical History / Comment(s): colitis Father Family Medical History: Hypertension Additional Family Medical History / Comment(s): alcoholic General Exam Limitations: no limitations General appearance: alert, in no apparent distress, anxious (Tearful and having difficulty speaking) ENT exam: Present: normal exam, normal oropharynx, mucous membranes moist, TM's normal bilaterally Neck exam: Present: normal inspection. Absent: tenderness, meningismus, lymphadenopathy Respiratory exam: Present: normal lung sounds bilaterally. Absent: respiratory distress, wheezes, rales, rhonchi, stridor Cardiovascular Exam: Present: regular rate, normal rhythm, normal heart sounds. Absent: systolic murmur, diastolic murmur, rubs, gallop, clicks GI/Abdominal exam: Present: soft, tenderness (generalized), normal bowel sounds Extremities exam: Present: normal inspection, full ROM, normal capillary refill. Absent: tenderness, pedal edema, joint swelling, calf tenderness Neurological exam: Present: alert, oriented X3, CN II-XII intact Psychiatric exam: Present: anxious Skin exam: Present: warm, dry, intact, normal color, erythema (cheeks). Absent: rash Course Vital Signs 07/05/23 07/05/23 07/05/23 14:16 14:36 16:26 Temperature 98.7 F Pulse Rate 99 100 80 Respiratory 24 20 16 Rate Blood Pressure 161/104 169/75 160/95 O2 Sat by Pulse 100 98 98 Oximetry 07/05/23 07/05/23 18:25 19:31 Temperature Pulse Rate 100 107 H Respiratory 20 17 Rate Blood Pressure 177/75 164/75 O2 Sat by Pulse 98 93 L Oximetry Medical Decision Making - Medical Decision Making Was pt. sent in by a medical professional or institution (, PA, LEARNING OFFICER, urgent care, hospital, or retirement...) When possible be specific @ -No Did you speak to anyone other than the patient for history (EMS, parent, family, police, friend...)? What history was obtained from this source @ - Did you review nursing and triage notes (agree or disagree)? Why? @ -I reviewed and agree with nursing and triage notes Were old charts reviewed (outside hosp., previous admission, EMS record, old EKG, old radiological studies, urgent care reports/EKG's, retirement records)? Report findings @ -No old charts were reviewed Differential Diagnosis (chest pain, altered mental status, abdominal pain women, abdominal pain men, vaginal bleeding, weakness, fever, dyspnea, syncope, headache, dizziness, GI bleed, back pain, seizure, CVA, palpatations, mental health, musculoskeletal)? @ -Differential Abdominal Pain Women: Appendicitis, Cholecystitis, diverticulosis, ischemic bowel, pancreatitis, hepatitis, UTI, gastroenteritis, AAA, incarcerated hernia, bowel obstruction, constipation, inflammatory bowel, hepatitis, peptic ulcer disease, splenic infarction, perforated viscus, vulvitis, ovarian torsion, PID, kidney stone, placenta abruption, this is not meant to be an all-inclusive list EKG interpreted by me (3pts min.). @ -None X-rays interpreted by me (1pt min.). @ -None done CT interpreted by me (1pt min.). @ -CT abdomen and pelvis shows colonic wall thickening with inflammatory changes of the adjacent fat greatest in the right and left transverse colon. U/S interpreted by me (1pt. min.). @ -None done What testing was considered but not performed or refused? (CT, X-rays, U/S, labs)? Why? @ -None What meds were considered but not given or refused? Why? @ -None Did you discuss the management of the patient with other professionals (professionals i.e. , PA, LEARNING OFFICER, lab, RT, psych nurse, social and political studies professor, corporate lawyer, teacher, real estate loan officer, case management coordinator)? Give summary @ -No Was smoking cessation discussed for >3mins.? @ -No Was critical care preformed (if so, how long)? @ -No Were there social determinants of health that impacted care today? How? (Homelessness, low income, unemployed, alcoholism, drug addiction, tr ansportation, low edu. Level, literacy, decrease access to med. care, [facility], rehab)? @ -No Was there de-escalation of care discussed even if they declined (Discuss DNR or withdrawal of care, Hospice)? DNR status @ -No What co-morbidities impacted this encounter? (DM, HTN, Smoking, COPD, CAD, Cancer, CVA, ARF, Chemo, Hep., AIDS, mental health diagnosis, sleep apnea, morbid obesity)? @ -Anxiety, DM Was patient admitted / discharged? Hospital course, mention meds given and route, prescriptions, significant lab abnormalities, going to OR and other pertinent info. @ -Discharged. Patient is a 58-year-old female presented ER chief complaint of abdominal pain and diarrhea. On examination, vital signs are stable. Physical exam was completed and was significant for generalized tenderness to palpation of the abdomen. Patient was very anxious and was tearful having difficulty speaking during examination. Patient received 1 L of IV fluids in 2 mg of IV Ativan. Labs obtained the ER were significant for blood cell count of 14.7, BUN 44, creatinine 1.31. Urine was positive for ketones. Viral swabs obtained in the ER were negative. CT abdomen pelvis showed colonic wall thickening with inflammatory changes of the adjacent fat greatest in the right and left transverse colon. Upon reevaluation, patient's anxiety has improved. I discussed with the patient's findings and will prescribe Imodium and Bentyl at discharge. I encouraged patient to increase hydration. Return parameters were discussed. Patient was discharged in stable condition with follow-up to PCP. Patient expressed understanding and agreement with care plan. Undiagnosed new problem with uncertain prognosis? @ -No Drug Therapy requiring intensive monitoring for toxicity (Heparin, Nitro, Insulin, Cardizem)? @ -No Were any procedures done? @ -No Diagnosis/symptom? @ -Colitis/dehydration Acute, or Chronic, or Acute on Chronic? @ -Acute Uncomplicated (without systemic symptoms) or Complicated (systemic symptoms)? @ -Complicated Side effects of treatment? @ -No Exacerbation, Progression, or Severe Exacerbation? @ -No Poses a threat to life or bodily function? How? (Chest pain, USA, DC, pneumonia, PE, COPD, DKA, ARF, appy, cholecystitis, CVA, Diverticulitis, Homicidal, Suicidal, threat to staff... and all critical care pts) @ -No - Lab Data Result diagrams: 07/05/23 14:47 07/05/23 14:47 Lab Results 07/05/23 07/05/23 07/05/23 Range/Units 14:47 14:47 14:47 WBC 14.7 H (3.8-10.6) k/uL RBC 4.51 (3.80-5.40) m/uL Hgb 13.5 (11.4-16.0) gm/dL Hct 39.9 (34.0-46.0) % MCV 88.5 (80.0-100.0) fL MCH 30.0 (25.0-35.0) pg MCHC 33.9 (31.0-37.0) g/dL RDW 12.6 (11.5-15.5) % Plt Count 416 (150-450) k/uL MPV 8.6 Neutrophils % 83 % Lymphocytes % 10 % Monocytes % 5 % Eosinophils % 1 % Basophils % 0 % Neutrophils # 12.2 H (1.3-7.7) k/uL Lymphocytes # 1.5 (1.0-4.8) k/uL Monocytes # 0.8 (0-1.0) k/uL Eosinophils # 0.1 (0-0.7) k/uL Basophils # 0.1 (0-0.2) k/uL Sodium 133 L (137-145) mmol/L Potassium 4.0 (3.5-5.1) mmol/L Chloride 96 L (98-107) mmol/L Carbon Dioxide 23 (22-30) mmol/L Anion Gap 14 mmol/L BUN 44 H (7-17) mg/dL Creatinine 1.31 H (0.52-1.04) mg/dL Est GFR (CKD-EPI)AfAm 51 (>60 ml/min/1.73 sqM) Est GFR (CKD-EPI)NonAf 44 (>60 ml/min/1.73 sqM) Glucose 101 H (74-99) mg/dL Calcium 9.4 (8.4-10.2) mg/dL Total Bilirubin 0.8 (0.2-1.3) mg/dL AST 23 (14-36) U/L ALT 19 (4-34) U/L Alkaline Phosphatase 169 H (38-126) U/L Total Protein 6.4 (6.3-8.2) g/dL Albumin 3.7 (3.5-5.0) g/dL Amylase <30 L (30-110) U/L Lipase 11 L (23-300) U/L Urine Color Yellow Urine Appearance Slightly Cloudy H (Clear) Urine pH 7.5 (5.0-8.0) Ur Specific [place] 1.010 (1.001-1.035) Urine Protein 2+ H (Negative) Urine Glucose (UA) Negative (Negative) Urine Ketones 3+ H (Negative) Urine Blood Negative (Negative) Urine Nitrite Negative (Negative) Urine Bilirubin Negative (Negative) Urine Urobilinogen <2.0 (<2.0) mg/dL Ur Leukocyte Esterase Negative (Negative) Urine RBC 1 (0-5) /hpf Urine WBC 4 (0-5) /hpf Ur Squamous Epith Cells 29 H (0-4) /hpf Hyaline Casts 1 (0-2) /lpf Urine Mucus Rare H (None) /hpf Influenza Type A (PCR) (Not Detectd) Influenza Type B (PCR) (Not Detectd) RSV (PCR) (Not Detectd) SARS-CoV-2 (PCR) (Not Detectd) 07/05/23 Range/Units 14:47 WBC (3.8-10.6) k/uL RBC (3.80-5.40) m/uL Hgb (11.4-16.0) gm/dL Hct (34.0-46.0) % MCV (80.0-100.0) fL MCH (25.0-35.0) pg MCHC (31.0-37.0) g/dL RDW (11.5-15.5) % Plt Count (150-450) k/uL MPV Neutrophils % % Lymphocytes % % Monocytes % % Eosinophils % % Basophils % % Neutrophils # (1.3-7.7) k/uL Lymphocytes # (1.0-4.8) k/uL Monocytes # (0-1.0) k/uL Eosinophils # (0-0.7) k/uL Basophils # (0-0.2) k/uL Sodium (137-145) mmol/L Potassium (3.5-5.1) mmol/L Chloride (98-107) mmol/L Carbon Dioxide (22-30) mmol/L Anion Gap mmol/L BUN (7-17) mg/dL Creatinine (0.52-1.04) mg/dL Est GFR (CKD-EPI)AfAm (>60 ml/min/1.73 sqM) Est GFR (CKD-EPI)NonAf (>60 ml/min/1.73 sqM) Glucose (74-99) mg/dL Calcium (8.4-10.2) mg/dL Total Bilirubin (0.2-1.3) mg/dL AST (14-36) U/L ALT (4-34) U/L Alkaline Phosphatase (38-126) U/L Total Protein (6.3-8.2) g/dL Albumin (3.5-5.0) g/dL Amylase (30-110) U/L Lipase (23-300) U/L Urine Color Urine Appearance (Clear) Urine pH (5.0-8.0) Ur Specific [place] (1.001-1.035) Urine Protein (Negative) Urine Glucose (UA) (Negative) Urine Ketones (Negative) Urine Blood (Negative) Urine Nitrite (Negative) Urine Bilirubin (Negative) Urine Urobilinogen (<2.0) mg/dL Ur Leukocyte Esterase (Negative) Urine RBC (0-5) /hpf Urine WBC (0-5) /hpf Ur Squamous Epith Cells (0-4) /hpf Hyaline Casts (0-2) /lpf Urine Mucus (None) /hpf Influenza Type A (PCR) Not Detected (Not Detectd) Influenza Type B (PCR) Not Detected (Not Detectd) RSV (PCR) Not Detected (Not Detectd) SARS-CoV-2 (PCR) Not Detected (Not Detectd) - Radiology Data Radiology results: report reviewed, image reviewed Disposition Clinical Impression: Dehydration, Colitis Disposition: HOME SELF-CARE Condition: Stable Instructions (If sedation given, give patient instructions): Acute Nausea and Vomiting (ED) Additional Instructions: Please return to the Emergency Department if symptoms worsen or any other con cerns. Please increase hydration. Prescriptions: Dicyclomine [Bentyl] 20 mg PO TID #30 tablet Loperamide [Imodium] 2 mg PO ONCE #10 capsule Is patient prescribed a controlled substance at d/c from ED?: No Referrals: Simi Cisneros MD [Primary Care Provider] - 1-2 days Time of Disposition: 19:10
[2023-07-05 15:20] LABS: ALT 19 U/L (4-34); African American GFR (CKD) 51 (>60 ml/min/1.73 sqM); Albumin 3.7 g/dL (3.5-5.0); Anion Gap 14 mmol/L; Blood Urea Nitrogen 44 mg/dL (7-17); Calcium 9.4 mg/dL (8.4-10.2); Carbon Dioxide 23 mmol/L (22-30); Chloride 96 mmol/L (98-107); Glucose 101 mg/dL (74-99); Lipase 11 U/L (23-300); Non-African American GFR(CKD) 44 (>60 ml/min/1.73 sqM); Sodium 133 mmol/L (137-145); Total Bilirubin 0.8 mg/dL (0.2-1.3); Total Protein 6.4 g/dL (6.3-8.2)
[2023-07-05 15:30] LABS: AST 23 U/L (14-36); Alkaline Phosphatase 169 U/L (38-126); Amylase <30 U/L (30-110)
[2023-07-05 15:39] LABS: Basophils # (A) 0.1 k/uL (0-0.2); Basophils % (A) 0 %; Eosinophils # (A) 0.1 k/uL (0-0.7); Eosinophils % (A) 1 %; HCT 39.9 % (34.0-46.0); HGB 13.5 gm/dL (11.4-16.0); Lymphocytes # (A) 1.5 k/uL (1.0-4.8); Lymphocytes % (A) 10 %; MCHC 33.9 g/dL (31.0-37.0); MCV 88.5 fL (80.0-100.0); Mean Platelet Volume 8.6; Monocytes # (A) 0.8 k/uL (0-1.0); Monocytes % (A) 5 %; Neutrophils # (A) 12.2 k/uL (1.3-7.7); Neutrophils % (A) 83 %; Platelet Count 416 k/uL (150-450); RBC 4.51 m/uL (3.80-5.40); RDW 12.6 % (11.5-15.5); WBC 14.7 k/uL (3.8-10.6)
[2023-07-05 15:52] LABS: Appearance,Urine Slightly Cloudy (Clear); Color,Urine Yellow
[2023-07-05 15:53] LABS: Bilirubin,Urine Negative (Negative); Blood,Urine Negative (Negative); Glucose,Urine (UA) Negative (Negative); Ketones,Urine 3+ (Negative); Leukocyte Esterase,Urine Negative (Negative); Nitrite,Urine Negative (Negative); PH, Urine 7.5 (5.0-8.0); Protein,Urine 2+ (Negative); Urobilinogen,Urine <2.0 mg/dL (<2.0)
[2023-07-05 15:57] LABS: Hyaline Casts,Urine 1 /lpf (0-2); Mucus,Urine Rare /hpf; RBC,Urine 1 /hpf (0-5); Squamous Epithelial Cell,Urine 29 /hpf (0-4); WBC,Urine 4 /hpf (0-5)
--- NOTE | 2023-07-05 18:55 | CT ---
EXAMINATION TYPE: CT abdomen pelvis w con CT DLP: 1893.7 mGycm, Automated exposure control for dose reduction was used. DATE OF EXAM: 07/05/2023 4:49 PM COMPARISON: None. CLINICAL INDICATION:Female, 58 years old with history of pain; ABDOMINAL PAIN, N,V,D TECHNIQUE: Axial CT of the abdomen and pelvis. Sagittal and coronal reformats were created on a [employer] workstation. Contrast used:80ML mL of Isovue 300 with IV Contrast, (none if empty) Oral contrast used: without Oral Contrast (none if empty) FINDINGS: LOWER CHEST: Mild bibasilar atelectasis. Heart size upper normal. ABDOMEN LIVER: Low-density 2.7 cm nodule towards the hepatic dome in the right lobe is not fully characterize d but probably a cyst. No clearly suspicious liver mass. Portal vein is enhancing. Eventration noted along the right more than left hemidiaphragm with a portion of the liver projecting up into the ches t. GALLBLADDER AND BILE DUCTS: Gallbladder is mildly prominent without evidence of calcified stones or p ericholecystic inflammation. Nondilated bile ducts. PANCREAS: Atrophic without acute abnormality. SPLEEN: Unremarkable. ADRENAL GLANDS: Unremarkable. KIDNEYS AND URETERS: Kidneys enhance symmetrically. There is no evidence of hydronephrosis. Assessm ent limited by motion. PELVIS BLADDER: Only partially filled but grossly unremarkable. REPRODUCTIVE: The uterus is surgically absent. ABDOMEN & PELVIS STOMACH AND BOWEL: Stomach and small bowel show no evidence of obstruction. Appendix is not readily v isualized but there is no inflammatory process localized to the right lower quadrant. There is redund sathish of the colon, especially the transverse portion. There does seem to be some colonic wall thicken ing, probably throughout the majority of the colon but greatest from the right through transverse col on with some pericolonic inflammatory changes. PERITONEUM/RETROPERITONEUM: No evidence of pneumoperitoneum or free fluid. VASCULATURE: Mild atherosclerotic calcifications are present throughout the abdominal aorta and its b ranches. No evidence of aortic aneurysm. MUSCULOSKELETAL: No acute osseous abnormalities. Moderate disc degeneration changes are present throu ghout the thoracolumbar spine. Mild apex right scoliosis in the mid lumbar region. Near-complete inte rbody bony fusion of L1 and L2. Slight retrolisthesis of L2 on L3. Slight anterolisthesis L5 on S1. LYMPH NODES: No gross evidence for lymphadenopathy. SOFT TISSUE/ABDOMINAL WALL: Tiny fat-containing umbilical hernia. IMPRESSION: Colonic wall thickening with inflammatory changes of the adjacent fat, greatest in the right and wallace sverse colon, suggestive of a nonspecific colitis. Likely considerations include infection and IBD.
[2023-07-05 19:55] VITALS: BP 164/75; PULSE 107; RESP 17
== END 2023-07-05 19:39 | disposition home or self-care (01) ==
LOC: EC 14:11
DX: E86.0 Dehydration (principal); K52.9 Noninfective gastroenteritis and colitis, unspecified; I10 Essential (primary) hypertension; J45.909 Unspecified asthma, uncomplicated; E78.5 Hyperlipidemia, unspecified; Z79.899 Other long term (current) drug therapy; Z20.822 Contact with and (suspected) exposure to COVID-19
CPT/HCPCS: 36415; 80053; 82150; 83690; 85025; 81001; 87636; 74177; 99285; 96374; 96361; J2060; Q9967

== ENCOUNTER → 2023-11-20 | Outpatient (CLI) | payer BC ==
--- NOTE | 2023-11-20 14:37 | US ---
EXAMINATION TYPE: US kidneys/renal and bladder DATE OF EXAM: 11/20/2023 COMPARISON: CT 07/05/2023 US 09/15/2019 US 02/22/2016 CLINICAL INDICATION: Female, 58 years old with history of N18.9 CHRONIC KIDNEY DISEASE, UNSPECIFIED; Patient denies any signs or symptoms at this time. Hx HTN EXAM MEASUREMENTS: Right Kidney: 9.3 x 4.3 x 5.1 cm Left Kidney: 7.8 x 3.8 x 5.0 cm Post Void Residual Volume: NA mL Right Kidney: WNL Left Kidney: WNL Bladder: Not fully distended Bilateral Jets seen: Not able to assess Normal Post Void Residual: Na There is no evidence for hydronephrosis at this point in time. No nephrolithiasis is seen. No richard s are identified. IMPRESSION: 1. No solid renal mass, hydronephrosis or renal calcification or perinephric fluid collection. 2. Urinary bladder not well evaluated due to inadequate distention.
== END | disposition home or self-care (01) ==
LOC: RADUSWWP 12:25
PROVIDERS: ATTEND Internal Medicine
DX: I12.9 Hypertensive chronic kidney disease with stage 1 through stage 4 chronic kidney disease, or unspecified chronic kidney disease (principal); N18.9 Chronic kidney disease, unspecified
CPT/HCPCS: 76770

== ENCOUNTER → 2023-11-27 | Outpatient (CLI) | payer BC ==
--- NOTE | 2023-11-27 11:06 | MM ---
Reason for Exam: Screening (asymptomatic). Last mammogram was performed 1 year(s) and 3 month(s) ago. Patient History: Menarche at age 11. First Full-Term at age 22. Hysterectomy at age 35. Risk Values: Janette 5 year model risk: 1.3%. NCI Lifetime model risk: 6.6%. Prior Study Comparison: 08/29/2005 Bilateral Screening Mammogram, [facility]. 08/17/2014 Bilateral Screening Mammogram, [facility]. 09/17/2022 Bilateral MG screening mammo w CAD, [facility]. Tissue Density: There are scattered areas of fibroglandular density. Findings: Analyzed By CAD. Right breast: There is no suspicious group of microcalcifications or new suspicious mass. Left breast: There is no suspicious group of microcalcifications or new suspicious mass. Overall Assessment: Negative, BI-RAD 1 Management: Screening Mammogram of both breasts in [address] [facility] will attempt to contact patient to return for supplemental views and ultrasound if indicated. Patient should continue monthly self-breast exams. A clinical breast exam by your physician is recommended on an annual basis. This exam should not preclude additional follow-up of suspicious palpable abnormalities. Note on Janette scores and lifetime risk: 1. A Janette score greater than 3% is considered moderate risk. If this is the case, consider specialist referral to assess eligibility for a risk reducing agent. 2. If overall lifetime risk for the development of breast cancer is 20% or higher, the patient may qualify for future screening with alternating mammogram and breast MRI. Electronically signed and approved by: Vinnie Shah DO
== END | disposition home or self-care (01) ==
LOC: RADMAMWWP 06:58
PROVIDERS: ATTEND Family Medicine
DX: Z12.31 Encounter for screening mammogram for malignant neoplasm of breast (principal)
CPT/HCPCS: 77063; 77067

== ENCOUNTER → 2024-06-30 | Outpatient (CLI) | payer BC ==
--- NOTE | 2024-06-30 10:41 | MR ---
EXAMINATION TYPE: MR cervical spine wo con DATE OF EXAM: 06/30/2024 8:50 AM COMPARISON: none CLINICAL INDICATION: Female, 59 years old with history of M54.12 cervical radiculopathy, Neck and carmen k pain into rt arm and fingers IV Contrast: cc (None if empty) TECHNIQUE: Multiplanar, multisequence images of the cervical spine were acquired without contrast. Findings: The craniovertebral junction relation to prevertebral soft tissues are normal. The cervical vertebral segments are normal in height and alignment and there is no fracture or sublux ation. There is loss of the normal cervical lordosis. There is moderate disc space narrowing, disc bulge and spondylosis at the C4-5 and C5-6 level. There is mild disc space narrowing and spondylosis with circumferential disc bulge at the C6-7 level. There is mild to moderate effacement of the ventral aspect of thecal sac at C4-5 and C5-6 secondary t o posterior disc bulge. At C5-6 there is a mild canal stenosis. The cervical cord is normal in size and signal intensity. There is multilevel neural foraminal stenosis as follows; moderate at C4-5 on the right, moderate to severe at C4-5 and the left and severe at C5-6 on the right. IMPRESSION: 1. Mild to moderate degenerative disc disease at C4-5 and C5-6 levels and mild degenerative disease a t the C6-7 level. 2. no cervical disc herniation. 3. Mild cervical stenosis at C5-6 and 4. Multilevel neural foraminal stenosis, moderate at C4-5 on the right and severe at C5-6 on the righ t. Moderate to severe at C4-5 on the left. [facility], , 06/30/2024 10:39 AM
== END | disposition home or self-care (01) ==
LOC: RADMRIMAIN 07:52
PROVIDERS: ATTEND Anesthesiology
DX: M48.02 Spinal stenosis, cervical region (principal); M50.123 Cervical disc disorder at C6-C7 level with radiculopathy
CPT/HCPCS: 72141

== ENCOUNTER → 2024-08-25 | Outpatient (CLI) | payer BC ==
--- NOTE | 2024-08-25 08:57 | US ---
EXAMINATION TYPE: US abdomen complete DATE OF EXAM: 08/25/2024 COMPARISON: CT 2022, US 2023 CLINICAL INDICATION: Female, 59 years old with history of R10.11 RUQ PAIN; RUQ pain. TECHNIQUE: Grayscale and color Doppler imaging of the abdomen was performed. FINDINGS: EXAM MEASUREMENTS: Liver Length: 14.1 cm Gallbladder Wall: 0.25 cm CBD: 0.43 cm, color Doppler imaging was utilized to isolate the common bile duct for measurement. Spleen: 9.8 cm Right Kidney: 9.2 x 4.7 x 3.8 cm Left Kidney: 8.1 x 3.7 x 4.2 cm [employer]URNA[employer] INSPECTOR NOTES: Exam is limited due to gas. Pancreas: Limited visibility. Liver: *Increased echogenicity. *2 echogenic areas seen within the liver posteriorly show no posterio r shadowing. #1: 2.5 x 2.4 x 1.7 cm. #2: 1.7 x 1.9 x 1.5 cm. Gallbladder: Appears wnl Evidence for sonographic García's sign: No CBD: Appears wnl Spleen: Slightly limited. Right Kidney: wnl, No hydronephrosis, calculi or masses seen Left Kidney: Small in size. No hydronephrosis, calculi or masses seen Upper IVC: wnl Abd Aorta: Proximal segment appears ectatic at 2.7 cm. Some atherosclerotic changes seen. IMPRESSION: 1. Mild to moderate hepatic steatosis. 2. A couple echogenic lesions within the liver measuring 2.5 cm and 1.9 cm, favored hepatic hemangiom as. Recommend 6 month follow-up ultrasound to assess for stability. 3. No gallstones or biliary ductal dilatation. 4. Slightly ectatic proximal abdominal aorta at 2.7 cm. [facility], Workstation: [employer]EMILY, 08/25/2024 8:55 AM
== END | disposition home or self-care (01) ==
LOC: RADUSWWP 07:07
PROVIDERS: ATTEND Family Medicine
DX: K76.0 Fatty (change of) liver, not elsewhere classified (principal); I77.811 Abdominal aortic ectasia
CPT/HCPCS: 76700